=== PATIENT | male | born 1975 | race Caucasian/White ===

== ENCOUNTER 2022-12-02 12:16 | Emergency (ER) | payer SELFPAY ==
[~2022-12-02] VITALS: Ht 154.9 cm; Wt 79.8 kg
[2022-12-02 12:25] VITALS: BP 122/79
--- NOTE | 2022-12-02 12:25 | NUR ---
i feel better now but ealier i felt sob and chest pain
--- NOTE | 2022-12-02 12:29 | NUR ---
ivette been bitten by bees before and nothing never happen
[2022-12-02] MEDS ORDERED: FAMOTIDINE 20 MG TAB PO ONE (13:30)
[2022-12-02] MEDS ORDERED: FAMO-90 PO (13:38)
[2022-12-02] MEDS ORDERED: DIPH25TA53 PO (13:38)
[2022-12-02] MEDS ORDERED: BENC TP (13:38)
--- NOTE | 2022-12-02 14:18 | NUR ---
Patient discharged with v/s stable. Written and verbal after care instructions given and explained. Patient alert, oriented and verbalized understanding of instructions. Ambulatory with to home. All questions addressed prior to discharge. ID band removed. Patient advised to follow up with PMD. Rx of BENADRYL CREAM,PEPCID, BENADRYL given. Patient educated on indication of medication including possible reaction and side effects. Opportunity to ask questions provided and answered.
== END 2022-12-02 14:18 | disposition home or self-care (01) ==
LOC: MED 12:16
DX: T63.441A Toxic effect of venom of bees, accidental (unintentional), initial encounter (principal); E11.9 Type 2 diabetes mellitus without complications; Y92.89 Other specified places as the place of occurrence of the external cause
CPT/HCPCS: 99283